=== PATIENT | female | born 1940 | race African-American/Black ===

== ENCOUNTER 2018-12-21 07:25 | Day surgery (SDC) | payer OTHER ==
[2018-12-20 15:16] VITALS: BMI 19.1
[2018-12-21] MEDS ORDERED: LIDOCAINE HCL/PF 2% SDV 5ML VIAL ONE (07:46)
[2018-12-21] MEDS ORDERED: PROPOFOL 20 ML ONE ×2 (07:46)
[2018-12-21 07:59] VITALS: TEMP 98.2
[2018-12-21 10:08] VITALS: BP 131/86; PULSE 80
== END 2018-12-21 10:00 | disposition home or self-care (01) ==
LOC: FASU-ENDO 07:25
PROVIDERS: ATTEND Internal Medicine Gastroenterology
PROC: 0DB68ZX Excision of Stomach, Via Natural or Artificial Opening Endoscopic, Diagnostic (ICD-10-PCS; 2018-12-21)
PROC: 0DB18ZX Excision of Upper Esophagus, Via Natural or Artificial Opening Endoscopic, Diagnostic (ICD-10-PCS; 2018-12-21)
PROC: 0DB98ZX Excision of Duodenum, Via Natural or Artificial Opening Endoscopic, Diagnostic (ICD-10-PCS; principal; 2018-12-21 09:06)
DX: K29.50 Unspecified chronic gastritis without bleeding (principal); K31.9 Disease of stomach and duodenum, unspecified; B96.81 Helicobacter pylori [H. pylori] as the cause of diseases classified elsewhere; K22.10 Ulcer of esophagus without bleeding; D64.9 Anemia, unspecified; R63.4 Abnormal weight loss
CPT/HCPCS: 82962